=== PATIENT | female | born 1940 | race Caucasian/White ===

== ENCOUNTER → 2016-12-21 | Outpatient (CLI) | payer MEDICARE | END | disposition home or self-care (01) | LOC: CFH 12:23 | PROVIDERS: ATTEND Internal Medicine Cardiovascular Disease | DX: I07.1 Rheumatic tricuspid insufficiency (principal); E11.9 Type 2 diabetes mellitus without complications; Z87.891 Personal history of nicotine dependence | CPT/HCPCS: 93306 ==

== ENCOUNTER → 2017-10-18 | Outpatient (CLI) | payer MEDICARE ==
[~2017-10-18] MED LIST: REGADENOSON 0.4 MG/5 ML SYRINGE ONE
== END | disposition home or self-care (01) ==
LOC: RAD 10:14
PROVIDERS: ATTEND Internal Medicine Cardiovascular Disease
DX: Z01.810 Encounter for preprocedural cardiovascular examination (principal); I10 Essential (primary) hypertension; E11.9 Type 2 diabetes mellitus without complications
CPT/HCPCS: 78452; 93017; A9502; J2785

== ENCOUNTER 2018-11-21 09:21 | Outpatient (CLI) | payer MEDICARE, MEDICAID | END 2018-11-21 23:59 | disposition home or self-care (01) | LOC: CFH 09:21 | PROVIDERS: ATTEND Internal Medicine Cardiovascular Disease | DX: I08.3 Combined rheumatic disorders of mitral, aortic and tricuspid valves (principal); I11.9 Hypertensive heart disease without heart failure; E78.5 Hyperlipidemia, unspecified; E11.9 Type 2 diabetes mellitus without complications; Z87.891 Personal history of nicotine dependence | CPT/HCPCS: 93306 ==

== ENCOUNTER → 2020-11-13 | Outpatient (CLI) | payer MEDICARE, MEDICAID ==
[~2020-11-13] MED LIST changes: +ALEN70TA77 PO; +AMLO-150 PO; +APIX2.5T PO; +APIX5TAB PO; +ATOR20TA86 PO; +BACL-19 PO; +DIGO125T85 PO; +FURO40TA6 PO; +LOSA50TA14 PO; +METF10007 PO; +METO50TA6 PO; +OMEP20CA20 PO; +OXYC5TAB2 PO; +POTA20TA14 PO; -REGADENOSON 0.4 MG/5 ML SYRINGE ONE; +ROPI0.5T4 PO; +SOTA80TA18 PO
== END | disposition home or self-care (01) ==
LOC: CVU 11:13
PROVIDERS: ATTEND Internal Medicine Cardiovascular Disease
DX: I05.1 Rheumatic mitral insufficiency (principal); I05.8 Other rheumatic mitral valve diseases; I48.91 Unspecified atrial fibrillation; I11.9 Hypertensive heart disease without heart failure; E78.5 Hyperlipidemia, unspecified; E11.9 Type 2 diabetes mellitus without complications; Z87.891 Personal history of nicotine dependence
CPT/HCPCS: 93306; 93356